=== PATIENT | female | born 1940 | race Asian ===

== ENCOUNTER 2018-08-01 09:28 | Emergency (ER) | payer MEDICARE ==
[~2018-08-01] VITALS: Ht 154.9 cm; Wt 49.1 kg
[~2018-08-01 09:28] MED LIST: ESZO3TAB28 PO
[2018-08-01 10:28] LABS: MICROSCOPIC NOT IND
[2018-08-01 10:29] LABS: CULTURE INDICATED? NO
[2018-08-01] MEDS ORDERED: MAALOX/HYOSCYAMINE/LIDOCAINE 45 ML BTL PO ONE (10:30)
[2018-08-01 10:41] LABS: BASOPHILS # (AUTO) 0.03 x10^3/uL (0-0.1); BASOPHILS % (AUTO) 1 % (0-1); EOSINOPHILS # (AUTO) 0.07 x10^3/uL (0-0.4); EOSINOPHILS % (AUTO) 1 % (1-7); LYMPHOCYTES # (AUTO) 2.81 x10^3/uL (1-3.4); LYMPHOCYTES % (AUTO) 40 % (22-44); MD NO; MEAN CORPUSCULAR HEMOGLOBIN 30.9 pg (27.0-34.8); MEAN CORPUSCULAR HGB CONC 33.9 g/dL (32.4-35.8); MEAN CORPUSCULAR VOLUME 91.2 fL (80-100); MEAN PLATELET VOLUME 8.3 fL (7.4-10.4); MONOCYTES # (AUTO) 0.58 x10^3/uL (0.2-0.8); MONOCYTES % (AUTO) 8 % (2-9); NEUTROPHILS # (AUTO) 3.64 x10^3/uL (1.8-6.8); NEUTROPHILS % (AUTO) 51 % (42-75); PLATELET COUNT 206 x10^3/uL (130-400); RED BLOOD COUNT 4.72 x10^6/uL (3.82-5.3); RED CELL DISTRIBUTION WIDTH 14.2 % (9.6-15.2)
[2018-08-01 10:55] LABS: ALANINE AMINOTRANSFERASE 36 U/L (12-78); ALBUMIN 3.7 g/dL (3.4-5.0); ANION GAP 8 mmol/L (5-15); CALCIUM 8.7 mg/dL (8.5-10.1); CHLORIDE 110 mmol/L (98-107); CREATININE 0.68 mg/dL (0.55-1.02)
[2018-08-01 10:58] VITALS: BP 123/73
[2018-08-01 10:59] LABS: ALKALINE PHOSPHATASE 49 U/L (45-117); BILIRUBIN,TOTAL 0.4 mg/dL (0.2-1.0); TOTAL PROTEIN 8.3 g/dL (6.4-8.2); TROPONIN I < 0.015 ng/mL (0.000-0.045)
[2018-08-01] MEDS ORDERED: FAMOTIDINE 20 MG TABLET PO ONE (11:00)
[2018-08-01] MEDS ORDERED: FAMOTIDINE 20 MG TABLET ONE (11:01)
[2018-08-01] MEDS ORDERED: MAALOX/HYOSCYAMINE/LIDOCAINE 45 ML BTL ONE (11:03)
== END 2018-08-01 11:32 | disposition home or self-care (01) ==
LOC: ED 11:26
DX: K29.50 Unspecified chronic gastritis without bleeding (principal); Z90.89 Acquired absence of other organs
CPT/HCPCS: 36415; 74021; 80053; 81003; 83690; 84484; 85025; 93005; 99284

== ENCOUNTER → 2018-11-02 | Outpatient (CLI) | payer MEDICARE ==
[~2018-11-02] MED LIST changes: +OMNIPAQUE 350 MG/ML, 75ML BOTTLE ONE
== END | disposition home or self-care (01) ==
LOC: CFH 07:50
PROVIDERS: ATTEND Family Medicine
DX: I77.810 Thoracic aortic ectasia (principal); R63.4 Abnormal weight loss
CPT/HCPCS: 71260; 74021; 82565; Q9967

== ENCOUNTER 2019-11-22 10:13 | Emergency (ER) | payer MEDICARE ==
[~2019-11-22] VITALS: Ht 154.9 cm; Wt 52.0 kg
[~2019-11-22 10:13] MED LIST changes: -OMNIPAQUE 350 MG/ML, 75ML BOTTLE ONE
[2019-11-22] MEDS ORDERED: KETOROLAC 30 MG/1 ML IVPush ONE (11:00)
[2019-11-22] MEDS ORDERED: SODIUM CHLORIDE FLUSH 10ML SYR IVF ONE (11:00)
[2019-11-22] MEDS ORDERED: KETOROLAC 30 MG/1 ML ONE (11:05)
[2019-11-22 11:08] LABS: BASOPHILS # (AUTO) 0.02 x10^3/uL (0-0.1); BASOPHILS % (AUTO) 0 % (0-1); EOSINOPHILS # (AUTO) 0.07 x10^3/uL (0-0.4); EOSINOPHILS % (AUTO) 1 % (1-7); LYMPHOCYTES # (AUTO) 2.26 x10^3/uL (1-3.4); LYMPHOCYTES % (AUTO) 28 % (22-44); MD NO; MEAN CORPUSCULAR HGB CONC 33.3 g/dL (32.4-35.8); MEAN CORPUSCULAR VOLUME 90.1 fL (80-100); MEAN PLATELET VOLUME 8.1 fL (7.4-10.4); MONOCYTES # (AUTO) 0.69 x10^3/uL (0.2-0.8); MONOCYTES % (AUTO) 8 % (2-9); NEUTROPHILS # (AUTO) 5.13 x10^3/uL (1.8-6.8); NEUTROPHILS % (AUTO) 63 % (42-75); PLATELET COUNT 235 x10^3/uL (130-400); RED BLOOD COUNT 4.62 x10^6/uL (3.82-5.3); RED CELL DISTRIBUTION WIDTH 14.1 % (9.6-15.2)
[2019-11-22 11:20] LABS: CHLORIDE 106 mmol/L (98-107)
--- NOTE | 2019-11-22 11:21 | NUR ---
Patient into room, reported needing to use the bathroom, without orders patient encouraged to provide urine sample. RN reviewed clean catch urine instructions. Patient verbalized understanding. On patients return RN provided warm blanket and reviewed clinical screening with patient. provide followed shortly to bedside, patient assessed and orders placed. RN returned to bedside, educated patient on order for computed tomography scan with contrast. Patient agreeable to peripheral intravenous access. RN annel labs, sent with turbine mechanic to laboratory. RN then returned and administered antiinflammatory/analgesic medication per order (see electronic medicine administration record.) Patient attached to blood pressure cuff and pulsatile oxygen sensor. Vital signs stable (see vital signs flowsheet.) Awaiting for heating repair technician for ordered imaging.
[2019-11-22 11:27] LABS: ALANINE AMINOTRANSFERASE 25 U/L (12-78); ALBUMIN 3.4 g/dL (3.4-5.0); ALKALINE PHOSPHATASE 47 U/L (45-117); ANION GAP 4 mmol/L (5-15); BILIRUBIN,TOTAL 0.4 mg/dL (0.2-1.0); CALCIUM 9.9 mg/dL (8.5-10.1); CREATININE 0.66 mg/dL (0.55-1.02); TOTAL PROTEIN 9.3 g/dL (6.4-8.2)
[2019-11-22] MEDS ORDERED: OMNIPAQUE 350 MG/ML, 100ML BOTTLE ONE (11:56)
[2019-11-22 12:10] LABS: MICROSCOPIC NOT IND
[2019-11-22 12:14] LABS: CULTURE INDICATED? NO
[2019-11-22 12:24] VITALS: BP 115/68
== END 2019-11-22 13:21 | disposition home or self-care (01) ==
LOC: ED 10:44
DX: M54.12 Radiculopathy, cervical region (principal); M62.838 Other muscle spasm; M54.2 Cervicalgia; R10.84 Generalized abdominal pain; E11.9 Type 2 diabetes mellitus without complications; M06.9 Rheumatoid arthritis, unspecified; Z90.49 Acquired absence of other specified parts of digestive tract
CPT/HCPCS: 36415; 70491; 74177; 80053; 81003; 83605; 83690; 85025; 96374; 99285; J1885; Q9967

== ENCOUNTER → 2019-12-11 | Outpatient (CLI) | payer MEDICARE ==
[~2019-12-11] MED LIST changes: +GADOTERATE 7.5 MMOL/15 ML SYR ONE
== END | disposition home or self-care (01) ==
LOC: RAD 07:57
PROVIDERS: ATTEND Otolaryngology
DX: R22.1 Localized swelling, mass and lump, neck (principal)
CPT/HCPCS: 70543; A9575

== ENCOUNTER 2020-04-15 21:27 | Emergency (ER) | payer MEDICARE ==
[~2020-04-15] VITALS: Ht 154.9 cm; Wt 50.4 kg
[~2020-04-15 21:27] MED LIST changes: -GADOTERATE 7.5 MMOL/15 ML SYR ONE
--- NOTE | 2020-04-15 22:08 | NUR ---
pt sts she had chest palpitations and dizziness all day after taking ambien 5 mg yesterday for insomnia. insomnia x5 yrs, sts her psychologist changes her meds. jhonny cp/sob/sx right now. ekg in triage. son at bedside. pt sanaz daigle&ox4 gcs 15. call younger in reach. as
[2020-04-15 22:34] LABS: BASOPHILS # (AUTO) 0.03 x10^3/uL (0-0.1); BASOPHILS % (AUTO) 0 % (0-1); EOSINOPHILS % (AUTO) 1 % (1-7); LYMPHOCYTES % (AUTO) 34 % (22-44); MD NO; MEAN CORPUSCULAR HEMOGLOBIN 29.4 pg (27.0-34.8); MEAN CORPUSCULAR HGB CONC 32.2 g/dL (32.4-35.8); MEAN PLATELET VOLUME 7.9 fL (7.4-10.4); MONOCYTES % (AUTO) 12 % (2-9); NEUTROPHILS # (AUTO) 4.01 x10^3/uL (1.8-6.8); NEUTROPHILS % (AUTO) 53 % (42-75); PLATELET COUNT 226 x10^3/uL (130-400); RED BLOOD COUNT 4.67 x10^6/uL (3.82-5.3); RED CELL DISTRIBUTION WIDTH 13.6 % (9.6-15.2)
[2020-04-15 22:49] LABS: ALBUMIN 3.2 g/dL (3.4-5.0); ANION GAP 7 mmol/L (5-15); CALCIUM 8.9 mg/dL (8.5-10.1); CHLORIDE 107 mmol/L (98-107); CREATININE 0.66 mg/dL (0.55-1.02)
[2020-04-15 22:53] LABS: TROPONIN I < 0.015 ng/mL (0.000-0.045)
--- NOTE | 2020-04-15 22:55 | NUR ---
report to emili bradley. as
[2020-04-16 00:06] VITALS: BP 121/71
[2020-04-17] MEDS ORDERED: TRAZ-96 PO (13:34)
== END 2020-04-16 00:08 | disposition home or self-care (01) ==
LOC: ED 22:23
DX: R00.2 Palpitations (principal); T42.6X5A Adverse effect of other antiepileptic and sedative-hypnotic drugs, initial encounter; R42 Dizziness and giddiness; Y92.89 Other specified places as the place of occurrence of the external cause; E11.9 Type 2 diabetes mellitus without complications; Z90.89 Acquired absence of other organs; Z90.49 Acquired absence of other specified parts of digestive tract
CPT/HCPCS: 36415; 80048; 82040; 83735; 84443; 84484; 85025; 93005; 99284

== ENCOUNTER 2020-04-17 10:35 | Emergency (ER) | payer MEDICARE ==
[~2020-04-17] VITALS: Ht 154.9 cm; Wt 49.2 kg
--- NOTE | 2020-04-17 10:38 | NUR ---
NIL X1
--- NOTE | 2020-04-17 12:25 | NUR ---
ERMD AT BEDSIDE FOR ASSESSMENT.
[2020-04-17] MEDS ORDERED: ACETAMINOPHEN 500 MG TABLET PO ONE (12:30)
[2020-04-17] MEDS ORDERED: ACETAMINOPHEN 500 MG TABLET ONE (12:36)
--- NOTE | 2020-04-17 12:39 | NUR ---
PINNER PRINTED CIRCUIT BOARDS PER MAR
--- NOTE | 2020-04-17 13:25 | NUR ---
PT RESTING COMFORTABLY ON GURNEY. NADN. PT STATES [facility]ON IS BETTER.
[2020-04-17] MEDS ORDERED: TRAZ-96 PO (13:34)
[2020-04-17 13:45] VITALS: BP 120/66
== END 2020-04-17 14:04 | disposition home or self-care (01) ==
LOC: ED 10:56
DX: R00.2 Palpitations (principal); R42 Dizziness and giddiness; R51 Headache; I44.4 Left anterior fascicular block; E11.9 Type 2 diabetes mellitus without complications; M19.90 Unspecified osteoarthritis, unspecified site; Z90.49 Acquired absence of other specified parts of digestive tract; Z90.89 Acquired absence of other organs
CPT/HCPCS: 93005; 99283

== ENCOUNTER → 2020-06-16 | Outpatient (CLI) | payer MEDICARE ==
[~2020-06-16] MED LIST changes: +REGADENOSON 0.4 MG/5 ML SYRINGE ONE; +TRAZ-96 PO
== END | disposition home or self-care (01) ==
LOC: CVU 06:57
PROVIDERS: ATTEND Internal Medicine Cardiovascular Disease
DX: I08.3 Combined rheumatic disorders of mitral, aortic and tricuspid valves (principal); R00.2 Palpitations
CPT/HCPCS: 78452; 93017; 93306; 93356; A9502; J2785

== ENCOUNTER → 2020-12-04 | Outpatient (CLI) | payer MEDICARE ==
[~2020-12-04] MED LIST changes: -REGADENOSON 0.4 MG/5 ML SYRINGE ONE
== END | disposition home or self-care (01) ==
LOC: CFH 09:35
PROVIDERS: ATTEND Internal Medicine
DX: Z12.31 Encounter for screening mammogram for malignant neoplasm of breast (principal)
CPT/HCPCS: 77063; 77067

== ENCOUNTER → 2020-12-30 | Outpatient (CLI) | payer MEDICARE | END | disposition home or self-care (01) | LOC: CFH 10:31 | PROVIDERS: ATTEND Internal Medicine | DX: Z13.820 Encounter for screening for osteoporosis (principal); M85.88 Other specified disorders of bone density and structure, other site; M81.0 Age-related osteoporosis without current pathological fracture; N95.9 Unspecified menopausal and perimenopausal disorder | CPT/HCPCS: 77080 ==

== ENCOUNTER 2021-02-04 16:17 | Emergency (ER) | payer MEDICARE ==
[~2021-02-04] VITALS: Ht 154.9 cm; Wt 54.2 kg
--- NOTE | 2021-02-04 16:52 | NUR ---
PT TO ROOM
--- NOTE | 2021-02-04 16:53 | NUR ---
PT TO ROOM FROM [facility], PT CHANGED INTO GOWN. MONITORS IN PLACE. SON AT . PT STATED SHE WENT TO HER NEUROLOGIST TODAY WHO SENT HER TO THE CLINIC TO GET AN US OF HER L-LE FOR POSSIBLE DVT.
--- NOTE | 2021-02-04 17:10 | NUR ---
ERP AT BS
[2021-02-04 17:40] VITALS: BP 111/58
[2021-02-04 17:59] LABS: BASOPHILS % (AUTO) 1 % (0-1); EOSINOPHILS % (AUTO) 2 % (1-7); LYMPHOCYTES % (AUTO) 35 % (22-44); MEAN CORPUSCULAR HEMOGLOBIN 29.8 pg (27.0-34.8); MEAN CORPUSCULAR HGB CONC 33.4 g/dL (32.4-35.8); MEAN PLATELET VOLUME 7.5 fL (7.4-10.4); MONOCYTES % (AUTO) 10 % (2-9); NEUTROPHILS % (AUTO) 53 % (42-75); PLATELET COUNT 216 x10^3/uL (130-400); RED BLOOD COUNT 4.13 x10^6/uL (3.82-5.3); RED CELL DISTRIBUTION WIDTH 14.4 % (9.6-15.2)
[2021-02-04 18:08] LABS: ALBUMIN 2.8 g/dL (3.4-5.0); ANION GAP 5 mmol/L (5-15); CALCIUM 9.2 mg/dL (8.5-10.1); CHLORIDE 108 mmol/L (98-107); CREATININE 0.73 mg/dL (0.55-1.02)
--- NOTE | 2021-02-04 18:50 | NUR ---
Patient/Caregiver given discharge instructions and they have confirmed that they understand the instructions. Patient ambulatory with steady gait.
== END 2021-02-04 18:51 | disposition home or self-care (01) ==
LOC: ED 17:03
DX: I82.442 Acute embolism and thrombosis of left tibial vein (principal); E11.9 Type 2 diabetes mellitus without complications; R94.31 Abnormal electrocardiogram [ECG] [EKG]; Z90.89 Acquired absence of other organs; Z90.49 Acquired absence of other specified parts of digestive tract
CPT/HCPCS: 36415; 80048; 82040; 85025; 93005; 99284

== ENCOUNTER → 2021-02-04 | Outpatient (CLI) | payer MEDICARE | END | disposition home or self-care (01) | LOC: CFH 15:13 | PROVIDERS: ATTEND Nurse Practitioner Gerontology | DX: I82.442 Acute embolism and thrombosis of left tibial vein (principal); R22.42 Localized swelling, mass and lump, left lower limb ==